=== PATIENT | female | born 1970 | race Caucasian/White ===

== ENCOUNTER 2017-05-10 21:55 | Inpatient (IN) | payer OTHER ==
[~2017-05-10] VITALS: Ht 152.4 cm; Wt 89.4 kg
[~2017-05-10 21:55] MED LIST: ALPRAZOLAM ER0.5 MG PO; AMITRIPTYLINE H25 MG PO; AMOXICILLIN500 M1 PO; ANTIVERT25 MG PO; ATIVAN1 MG PO; BUSPAR7.5 MG PO; CIPRO500 MG PO; INDOCIN SR75 MG PO; IRON325 M1 PO; METHYLPREDNISOLO4 M1 PO; MOTRIN400 MG PO; PREVACID15 MG PO; PRILOSEC20 MG PO; PROMETHAZINE HC25 M1 PO; PROPRANOLOL HCL20 MG PO; PYRIDIUM200 MG PO; TOPAMAX25 MG PO; TOPAMAX50 MG PO; TRAZODONE HCL50 MG PO; VITAMIN D1000 UNIT PO; XANAX0.5 MG PO; ZANTAC150 MG PO
[2017-05-11 06:09] VITALS: BP 122/83
[2017-05-11 10:18] LABS: HEMATOCRIT 25.6 % (36.0-46.0); MCHC 30.1 G/DL (30.0-36.0); MEAN PLAT.VOLUME 9.5 uM^3 (9.5-12.4); NRBC (%) 0.1 /100 WBC (0-0); PLATELET COUNT 417 K/uL (156-360); RBC DIS.WIDTH-CV 20.1 % (11.8-14.6); RBC DIS.WIDTH-SD 50.4 % (39-53); RED BLOOD COUNT 3.08 M/uL (3.80-5.20); WHITE BLOOD COUNT 14.6 K/uL (4.1-10.2)
[2017-05-11 10:22] LABS: MCV 83.1 FL (83-99)
[2017-05-11 11:35] LABS: EOSINOPHIL (%) 0.4 % (0-5); EOSINOPHIL COUNT 0.1 K/uL (0-0.3); IMMATURE GRANULOCYTE (%) 0.4 % (0.0-0.7); IMMATURE GRANULOCYTE COUNT 0.1 K/uL; INSTRUMENT ABS NEUTROPHIL CT 12.4 K/uL; LYMPHOCYTE COUNT 1.7 K/uL (1.0-2.8); MONOCYTE (%) 2.1 % (3-12); MONOCYTE COUNT 0.3 K/uL (0-0.8); NEUTROPHIL (%) 85.2 % (45-76); NEUTROPHIL COUNT 12.4 K/uL (1.8-6.4)
[2017-05-11 11:46] VITALS: BP 134/61
[2017-05-11 16:10] VITALS: BP 116/59
[2017-05-11 19:40] VITALS: BP 102/56
[2017-05-11 23:47] VITALS: BP 108/60
[2017-05-12] VITALS (7 sets, daily range): BP systolic 100–121; BP diastolic 53–65
[2017-05-12 06:30] LABS: HEMATOCRIT 21.7 % (36.0-46.0); MCH 24.8 PG (29.0-34.0); MCHC 30.4 G/DL (30.0-36.0); MCV 81.6 FL (83-99); MEAN PLAT.VOLUME 9.6 uM^3 (9.5-12.4); NRBC (%) 0.3 /100 WBC (0-0); PLATELET COUNT 369 K/uL (156-360); RBC DIS.WIDTH-CV 20.5 % (11.8-14.6); RBC DIS.WIDTH-SD 49.1 % (39-53); RED BLOOD COUNT 2.66 M/uL (3.80-5.20)
[2017-05-12 17:29] LABS: ALKALINE PHOSPHATASE 45 IU/L (3-129); DIRECT BILIRUBIN 0.1 mg/dL (0.0-0.3); TOTAL BILIRUBIN 0.6 MG/DL (0.0-1.0)
[2017-05-12 17:33] LABS: BACTERIA RARE /HPF; EPITHELIAL CELLS RARE /HPF; MUCUS TRACE /LPF; WHITE BLOOD CELLS 0-5 /HPF (0-5)
[2017-05-13] VITALS (10 sets, daily range): BP systolic 106–125; BP diastolic 54–70
[2017-05-13 06:08] LABS: MCH 25.4 PG (29.0-34.0); MCHC 30.9 G/DL (30.0-36.0); MCV 82.4 FL (83-99); MEAN PLAT.VOLUME 9.4 uM^3 (9.5-12.4); PLATELET COUNT 324 K/uL (156-360); RBC DIS.WIDTH-CV 20.5 % (11.8-14.6); RBC DIS.WIDTH-SD 54.2 % (39-53); RED BLOOD COUNT 2.79 M/uL (3.80-5.20); WHITE BLOOD COUNT 8.1 K/uL (4.1-10.2)
[2017-05-13 10:09] LABS: ADD MIUA? YES; BILIRUBIN NEGATIVE; BLOOD SMALL; COLOR STRAW ((YELLOW)); GLUCOSE (STRIP) NEGATIVE; KETONES NEGATIVE; LEUKOCYTES NEGATIVE; NITRITE NEGATIVE; PROTEIN (STRIP) NEGATIVE; SPECIFIC GRAVITY 1.005 (1.000-1.030); UROBILINOGEN 0.2 MG/DL (0.2-1.0)
[2017-05-13 10:55] LABS: BACTERIA NONE SEEN /HPF; EPITHELIAL CELLS RARE /HPF; MUCUS TRACE /LPF; RED BLOOD CELLS 0-5 /HPF (0-5); UCUL ADDED? NO; WHITE BLOOD CELLS 0-5 /HPF (0-5)
[2017-05-13 14:01] LABS: HEMATOCRIT 27.3 % (36.0-46.0)
[2017-05-14 00:31] VITALS: BP 126/71
[2017-05-14 04:07] VITALS: BP 118/75
[2017-05-14 07:05] VITALS: BP 123/65
[2017-05-14] MEDS ORDERED: HYDROMORPHONE HC2 MG PO (12:33)
== END 2017-05-14 12:46 | disposition home or self-care (01) | DRG 742 ==
LOC: ENRESERV 21:55 → 2SOUTH 05-11 05:38 → 2EAST 05-11 05:38 → 2SOUTH 05-11 08:41 → ENRESERV 05-11 10:44 → 2EAST 05-11 11:17 → 2SOUTH 05-11 11:29 → 2EAST 05-12 21:31
PROVIDERS: Family Medicine; Obstetrics & Gynecology; Obstetrics & Gynecology Obstetrics
PROC: 0UT70ZZ Resection of Bilateral Fallopian Tubes, Open Approach (ICD-10-PCS; 2017-05-11)
PROC: 0UT90ZZ Resection of Uterus, Open Approach (ICD-10-PCS; 2017-05-11)
PROC: 0TJB8ZZ Inspection of Bladder, Via Natural or Artificial Opening Endoscopic (ICD-10-PCS; 2017-05-11)
PROC: 30233N1 Transfusion of Nonautologous Red Blood Cells into Peripheral Vein, Percutaneous Approach (ICD-10-PCS; principal; 2017-05-12)
DX: N92.0 Excessive and frequent menstruation with regular cycle (principal); D62 Acute posthemorrhagic anemia; K56.7 Ileus, unspecified; K91.89 Other postprocedural complications and disorders of digestive system; J95.89 Other postprocedural complications and disorders of respiratory system, not elsewhere classified; R50.9 Fever, unspecified; R50.82 Postprocedural fever; Y83.8 Other surgical procedures as the cause of abnormal reaction of the patient, or of later complication, without mention of misadventure at the time of the procedure; R50.84 Febrile nonhemolytic transfusion reaction; F41.9 Anxiety disorder, unspecified; F17.210 Nicotine dependence, cigarettes, uncomplicated; N83.291 Other ovarian cyst, right side; G43.909 Migraine, unspecified, not intractable, without status migrainosus; K59.00 Constipation, unspecified; E66.9 Obesity, unspecified; Z68.38 Body mass index [BMI] 38.0-38.9, adult; Z90.49 Acquired absence of other specified parts of digestive tract; Z60.2 Problems related to living alone; Y92.230 Patient room in hospital as the place of occurrence of the external cause
CPT/HCPCS: 36415; 71010; 80076; 81003; 81015; 84702; 85014; 85018; 85025; 85027; 86850; 86860; 86870; 86880; 86900; 86901; 86920; 87070; 87205; 88307; 94010; 99202; J0131; J0330; J0690; J1100; J1170; J1885; J2250; J2405; J2710; J3010; J7030; J7120; P9016; P9045; Q0175; S0074

== ENCOUNTER 2017-08-24 08:55 | Inpatient (IN) | payer OTHER ==
[~2017-08-24] VITALS: Ht 152.4 cm; Wt 77.1 kg
[~2017-08-24 08:55] MED LIST changes: +ALEVE220 MG PO; +HYDROMORPHONE HC2 MG PO
[2017-08-24 09:09] VITALS: BP 145/78
[2017-08-24 16:17] VITALS: BP 142/65
[2017-08-24 19:22] VITALS: BP 109/59
[2017-08-24 23:55] VITALS: BP 127/75
[2017-08-25 04:11] VITALS: BP 119/69
[2017-08-25 07:02] LABS: HEMATOCRIT 31.2 % (36.0-46.0); HEMOGLOBIN 9.6 G/DL (11.9-15.5); MCH 23.6 PG (29.0-34.0); MCHC 30.8 G/DL (30.0-36.0); MCV 76.8 FL (83-99); PLATELET COUNT 395 K/uL (156-360); RBC DIS.WIDTH-SD 49.7 % (39-53); RED BLOOD COUNT 4.06 M/uL (3.80-5.20); WHITE BLOOD COUNT 10.4 K/uL (4.1-10.2)
[2017-08-25 07:09] LABS: CHLORIDE 106 MEQ/L (99-109); CREATININE 0.6 MG/DL (0.6-1.3); GFR ESTIMATE (CALCULATED) > 59 mL/min/; GLUCOSE 115 mg/dL (70-99); MAGNESIUM 2.2 mg/dl (1.3-2.7); PHOSPHORUS 3.7 mg/dL (2.5-4.9); POTASSIUM 4.6 MEQ/L (3.7-5.4); SODIUM 140 MEQ/L (136-147); UREA NITROGEN (BUN) 8 mg/dL (9-23)
[2017-08-25 07:41] VITALS: BP 107/65
[2017-08-25 11:20] VITALS: BP 117/65
[2017-08-25 15:13] VITALS: BP 112/60
[2017-08-25 23:34] VITALS: BP 110/57
[2017-08-26 06:38] LABS: HEMATOCRIT 29.8 % (36.0-46.0); MCH 23.3 PG (29.0-34.0); MCHC 30.2 G/DL (30.0-36.0); PLATELET COUNT 343 K/uL (156-360); RBC DIS.WIDTH-CV 18.2 % (11.8-14.6); RBC DIS.WIDTH-SD 50.4 % (39-53); RED BLOOD COUNT 3.87 M/uL (3.80-5.20); WHITE BLOOD COUNT 8.6 K/uL (4.1-10.2)
[2017-08-26 07:16] LABS: CHLORIDE 107 MEQ/L (99-109); CREATININE 0.6 MG/DL (0.6-1.3); GFR ESTIMATE (CALCULATED) > 59 mL/min/; GLUCOSE 121 mg/dL (70-99); MAGNESIUM 2.2 mg/dl (1.3-2.7); POTASSIUM 3.9 MEQ/L (3.7-5.4); SODIUM 138 MEQ/L (136-147); UREA NITROGEN (BUN) 7 mg/dL (9-23)
[2017-08-26 07:19] LABS: PHOSPHORUS 2.4 mg/dL (2.5-4.9)
[2017-08-26 08:07] VITALS: BP 110/59
[2017-08-26 16:13] VITALS: BP 134/84
[2017-08-26 23:35] VITALS: BP 125/59
[2017-08-27 05:53] LABS: HEMATOCRIT 28.3 % (36.0-46.0); HEMOGLOBIN 8.7 G/DL (11.9-15.5); MCH 23.6 PG (29.0-34.0); MCHC 30.7 G/DL (30.0-36.0); MCV 76.9 FL (83-99); PLATELET COUNT 336 K/uL (156-360); RED BLOOD COUNT 3.68 M/uL (3.80-5.20); WHITE BLOOD COUNT 7.5 K/uL (4.1-10.2)
[2017-08-27 06:18] LABS: CREATININE 0.6 MG/DL (0.6-1.3); GFR ESTIMATE (CALCULATED) > 59 mL/min/; GLUCOSE 95 mg/dL (70-99); MAGNESIUM 2.1 mg/dl (1.3-2.7); PHOSPHORUS 2.7 mg/dL (2.5-4.9); UREA NITROGEN (BUN) 6 mg/dL (9-23)
[2017-08-27 06:21] LABS: CHLORIDE 107 MEQ/L (99-109); POTASSIUM 3.7 MEQ/L (3.7-5.4); SODIUM 139 MEQ/L (136-147)
[2017-08-27 07:00] VITALS: BP 111/59
[2017-08-27 15:10] VITALS: BP 132/66
[2017-08-27 23:30] VITALS: BP 119/79
[2017-08-28 06:01] LABS: HEMATOCRIT 28.7 % (36.0-46.0); HEMOGLOBIN 8.8 G/DL (11.9-15.5); MCH 23.4 PG (29.0-34.0); MCHC 30.7 G/DL (30.0-36.0); MCV 76.3 FL (83-99); PLATELET COUNT 361 K/uL (156-360); RBC DIS.WIDTH-CV 17.9 % (11.8-14.6); RBC DIS.WIDTH-SD 49.6 % (39-53); RED BLOOD COUNT 3.76 M/uL (3.80-5.20); WHITE BLOOD COUNT 6.3 K/uL (4.1-10.2)
[2017-08-28 06:30] LABS: CHLORIDE 106 MEQ/L (99-109); CREATININE 0.6 MG/DL (0.6-1.3); GFR ESTIMATE (CALCULATED) > 59 mL/min/; GLUCOSE 135 mg/dL (70-99); PHOSPHORUS 3.7 mg/dL (2.5-4.9); POTASSIUM 3.6 MEQ/L (3.7-5.4); SODIUM 140 MEQ/L (136-147); UREA NITROGEN (BUN) 7 mg/dL (9-23)
[2017-08-28 08:01] VITALS: BP 117/65
[2017-08-28 16:26] VITALS: BP 104/56
[2017-08-29 00:04] VITALS: BP 140/73
[2017-08-29 07:49] VITALS: BP 113/65
[2017-08-29] MEDS ORDERED: HYDROCODON-ACE1 EAC7 PO (14:04)
[2017-08-29] MEDS ORDERED: ONDANSETRON ODT4 MG PO (14:04)
== END 2017-08-29 16:20 | disposition home or self-care (01) | DRG 330 ==
LOC: SDC 08:55 → 2SOUTH 14:12 → 5EAST 14:12 → ENRESERV 14:14 → SDC 14:25 → ENRESERV 14:28 → SDC 14:57 → 5EAST 15:02
PROVIDERS: Surgery
DX: K43.0 Incisional hernia with obstruction, without gangrene (principal); K91.71 Accidental puncture and laceration of a digestive system organ or structure during a digestive system procedure; Y83.8 Other surgical procedures as the cause of abnormal reaction of the patient, or of later complication, without mention of misadventure at the time of the procedure; K66.0 Peritoneal adhesions (postprocedural) (postinfection); E78.00 Pure hypercholesterolemia, unspecified; F41.1 Generalized anxiety disorder; G43.909 Migraine, unspecified, not intractable, without status migrainosus; K21.9 Gastro-esophageal reflux disease without esophagitis; K59.00 Constipation, unspecified; M19.90 Unspecified osteoarthritis, unspecified site; F17.210 Nicotine dependence, cigarettes, uncomplicated; Z83.3 Family history of diabetes mellitus; Z90.710 Acquired absence of both cervix and uterus; Z53.31 Laparoscopic surgical procedure converted to open procedure
CPT/HCPCS: 80048; 83735; 84100; 85027; 88307; J0330; J0690; J1100; J1170; J1650; J1885; J2001; J2250; J2405; J2765; J3010; J3475; J3480; S0020; S0074